=== PATIENT | male | born 1945 | race Caucasian/White ===

== ENCOUNTER 2016-07-17 15:43 | Emergency (ER) | payer MEDICARE, MEDICAID ==
[~2016-07-17 15:43] MED LIST: DEBROX OTIC15 ML AU; LEVAQUIN DPS500 MG PO; MAALOX DPS30 ML PO; PHOS NAK PO; PRILOSEC DPS20 MG PO; TYLENOL DPS325 MG PO; VITAMIN B-12500 MCG PO; XALATAN2.5 ML OU
--- NOTE | 2016-07-19 19:25 | ER ---
ADMIT: 07/17/2016 RM/LOC: ER [facility] MR#: [id number] [address] [facility] [address] [place] [id number] [place] [address] Emergency Room Report SEX: M AGE: 71 : 1945 DATE: 07/17/2016 ADDENDUM: CHIEF COMPLAINT: Shortness of breath. HISTORY OF PRESENT ILLNESS: This is a 71-year-old, who lives at [facility]. He denies really having any shortness of breath, but he has had a cough for a couple weeks. He says he chronically has a cough. They were checking his oxygen today, it was in the upper 80s, they were concerned so they sent him to the emergency room. Again when he arrived, he really actually denies that he ever felt short of breath. He said he has actually felt pretty good. He has had a normal appetite. I did work him up for pneumonia here in the emergency room. BMP was normal except for creatinine slightly elevated at 1.5. CBC was normal except for white count of 12.7. Chest x-ray showed bilateral atelectasis. I did speak with Dr. Daly regarding this patient. He is okay with the patient going back to the senior care with oxygen. I am placing him on Levaquin and prednisone for a few days. Having him followup with Dr. Oseguera on Thursday to recheck. CLINICAL IMPRESSION: Chronic obstructive pulmonary disease exacerbation. [facility] / Cooper Lopez MD / modl JOB #: [id number] CC: Cooper Lopez MD, Attending Physician Andrei Oseguera MD, Family Physician
== END 2016-07-17 18:00 | disposition home or self-care (01) ==
LOC: ER 15:43
DX: J44.1 Chronic obstructive pulmonary disease with (acute) exacerbation (principal); I10 Essential (primary) hypertension; Z79.899 Other long term (current) drug therapy